=== PATIENT | female | born 2000 | race African-American/Black ===

== ENCOUNTER 2021-01-30 03:40 | Emergency (ER) | payer MEDICAID ==
[~2021-01-30] VITALS: Ht 157.5 cm; Wt 57.0 kg
[2021-01-30] MEDS: METOCLOPRAMIDE HCL 10MG/2ML VIAL IV ONE (04:20)
[2021-01-30] MEDS: SODIUM CHLORIDE 0.9% 1,000 ML IV ONE (04:20)
[2021-01-30 04:32] LABS: BASOPHILS % 0.5 % (0.0-2.0); EOSINOPHILS % 0.1 % (0.0-5.0); HEMATOCRIT. 40.9 % (36.0-48.0); HEMOGLOBIN. 13.3 g/dL (12.0-16.0); LYMPHOCYTES % 19.7 % (20.0-50.0); MEAN CORPUSCULAR HEMOGLOBIN 29.4 pg (28.0-32.0); MEAN CORPUSCULAR VOLUME 90.4 fL (81.0-99.0); MEAN PLATELET VOLUME 9.6 fl (7.4-10.4); MONOCYTES % 4.3 % (2.0-8.0); NEUTROPHILS % 75.4 % (40.0-76.0); PLATELET 239 x1000/uL (130-400); RED BLOOD CELL COUNT 4.53 mill/uL (4.2-5.4)
[2021-01-30 04:36] LABS: CHLORIDE 101 mEq/L (98-107)
[2021-01-30 05:12] LABS: B-HCG QUANTITATIVE 133929 mIU/mL (<3)
[2021-01-30] MEDS: POTASSIUM BICARB/CIT ACID 25 MEQ TABLET.EFF PO ONE (05:33)
[2021-01-30] MEDS: ONDANSETRON HCL 4MG/2ML INJ IV ONE (05:33)
[2021-01-30 05:46] LABS: CLARITY URINE CLOUDY (CLEAR); COLOR URINE DARK YELLOW (YELLOW); KETONES URINE 4+ (NEGATIVE); LEUKOCYTE ESTERASE URINE NEGATIVE (NEGATIVE); NITRITE URINE NEGATIVE (NEGATIVE); OCCULT BLOOD URINE 1+ (NEGATIVE); PH URINE 5.5 (4.5-8.0); PROTEIN URINE 2+ (NEGATIVE); SPECIFIC GRAVITY URINE 1.039 (1.005-1.030); UROBILINOGEN URINE 0.2 E.U./dL (0.2-1.0)
[2021-01-30] MEDS ORDERED: ONDA4TAB5 PO (05:57)
[2021-01-30 06:15] VITALS: BP 104/50
== END 2021-01-30 06:30 | disposition home or self-care (01) ==
LOC: ER 03:40
DX: O21.0 Mild hyperemesis gravidarum (principal); Z3A.09 9 weeks gestation of pregnancy
CPT/HCPCS: 36415; 80053; 81003; 81025; 83690; 84702; 85025; 93005; 96361; 96374; 96375; 99284; J2405; J2765; J7030